=== PATIENT | female | born 2000 | race Caucasian/White ===

== ENCOUNTER 2024-07-21 07:14 | Inpatient (IN) | payer BC, SELFPAY ==
[2024-07-21] VITALS (9 sets, daily range): BP systolic 125–150; BP diastolic 72–99; BMI 21.3
[2024-07-21 04:56] LABS: % Basophils 0.4 % (0-2); % Eosinophils 0.1 % (0-6); % Immature Granulocytes 0.3 % (0-0.5); % Lymphocytes 15.8 % (20.5-51.1); % Monocytes 2.4 % (1.7-9.3); Absolute Lymphocytes 1.6 10^3/uL (1.2-3.4); Absolute Monocytes 0.3 10^3/uL (0.1-0.6); Absolute Neutrophils 8.3 10^3/uL (1.4-6.5); Hematocrit 36.3 % (37.0-47.0); Hemoglobin 12.7 g/dL (12.0-16.0); Mean Corpuscular Hgb 29.9 pg (27.0-31.0); Mean Corpuscular Volume 85.4 fL (81.0-99.0); Mean Platelet Volume 10.6 fL (7.4-10.4); Nucleated Red Blood Cells % 0 %; Platelet Count 296 10^3/uL (130-400); Red Blood Cell Count 4.25 10^6/uL (4.20-5.40); White Blood Cell Count 10.2 10^3/uL (4.8-10.8)
[2024-07-21 05:10] LABS: ALT (SGPT) 16 U/L (0-35); AST (SGOT) 21 U/L (14-36); Albumin 5.1 g/dl (3.5-5.0); Alcohol 248 mg/dl; Alkaline Phosphatase 50 U/L (38-126); Blood Urea Nitrogen 9 mg/dl (7-17); Calcium 9.6 mg/dl (8.4-10.2); Carbon Dioxide 22 mmol/L (22-30); Chloride 107 mmol/L (98-107); Glucose 128 mg/dl (70-99); Potassium 4.4 mmol/L (3.5-5.1); Sodium 145 mmol/L (135-145); Total Bilirubin 0.2 mg/dl (0.2-1.3); Total Protein 7.8 g/dl (6.3-8.2); eGFR > 60.00
--- NOTE | 2024-07-21 05:32 | ED.GENMED ---
History of Present Illness
General
Chief Complaint: Musculo-Skeletal Complaint
Source: patient and ambulance crew
Exam Limitations: none
Time Seen by Provider: 07/21/24 04:39
Nursing documentation reviewed up to this point in time: agreed with
History of Present Illness
History of Present Illness:
This a pleasant 23-year-old female presents to the emergency department with left ankle pain and swelling. She admits to drinking alcohol this evening. This morning she awakened and slipped on some water that was on the floor. She is complaining
of left ankle pain. She also reports right ankle pain which is not as severe. Denies head injury or loss of consciousness.
Review of Systems
Review of Systems
Allergies reviewed?: Yes
Other source history: other (driend)
All Other Systems: ROS reviewed and negative except as documented in HPI and ROS
Musculoskeletal: Reports joint pain, joint swelling and muscle pain
Psychiatric: Reports anxiety
Phy Exam
General Physical Exam
General Presentation: well appearing and mild distress
General age: appears stated age
General Skin: warm and dry
General Habitus: normal
General Mental: alert
General Hydration: appears well hydrated
Cardiovascular Exam
Cardiovascular Exam: regular rate/rhythm and no edema
Pulmonary Exam
Pulmonary Exam: lungs clear and no respiratory distress
Skin Exam
Skin Exam: normal color and warm/dry
Psychiatric Exam
Psychiatric Exam: normal mood/affect
Course
Orders/Labs/Results
Orders:
Orders
07/21/24 04:39
Ankle, Right 3 view CR [CR Ankle - Right Min 3 Views *] Urgent
Comment:
Reason For Exam: fall
Ankle, left 3 view CR [CR Ankle - Left Min 3 Views ] Urgent
Comment:
Reason For Exam: fall
Knee, Left 4 or More Views [CR Knee - Left 4 Or More View*] Urgent
Comment:
Reason For Exam: fall
07/21/24 04:48
Alcohol Urgent
Complete Blood Count/With Diff Urgent
Comprehensive Metabolic Panel Urgent
07/21/24 Breakfast
Regular
At Your Request: Full Participation
07/21/24 06:20
Admit/Transfer Patient As Directed
Co-Sign Provider:
Level of Care: Inpatient admission
Assign to:: Medical/Surgical
Physician / Group: Gary
Diagnosis: L Ankle Fracture
Reason for Hospitalization: L Ankle Fracture
Expected length of stay greater than two midnights?: Yes
ELOS- Estimated Length of Stay in days: 2
I certify the patient meets the requirements for IP care: Yes
Code Status As Directed
Resuscitation Status: Full Code
PRN Pain Medication Management As Directed
May give lesser potent ordered pain med per pt: Yes
preference::
Protocol:: Medication orders for pain may be administered in a
manner that supports deferring to patient preference
when the pt is:
- Requesting an ordered lesser potent pain medication.
Least to most potent pain medications are defined
as: acetaminophen < NSAID < tramadol < opioids
(morphine, oxycodone, hydromorphone).
- Requesting a lesser dose of the same medication IF
ORDERED.
- Requesting a less intrusive route of administration
if both routes are prescribed by the provider (PO <
IV).
07/21/24 07:14
HYDROmorphone [Dilaudid] 1 mg IV NOW STA
Ondansetron Injectable [Zofran] 4 mg IV NOW STA
07/21/24 09:15
Acetaminophen [Tylenol] 650 mg PO Q4HPRN PRN
Dextrose 5%/Lactringers 1000ML [D5lr] 1,000 ml IV 100 mls/hr
HYDROmorphone [Dilaudid] 0.5 mg IV Q4HPRN PRN
07/21/24 09:15
ORTHOPEDIC CONSULT Routine
Consulting Provider: Loretta Pérez I.
Was physician already notified: Yes
Reason for consult: L Ankle Fracture
VTE Contraindication Routine
VTE Mechanical Device Contraindication: Lower Limb Injury
Pharmocologic Contraindication: Medical Contraindication
Activity As Directed
Activity Level: Bedrest
I/O [Intake/ Output] As Directed
Frequency: Per unit guidelines
Vital Signs As Directed
Frequency: Per unit guidelines
Weight Bearing Status As Directed
Weight bearing to: Left lower extremity
Type: Non Wt. bearing
Oxygen Therapy [O2 Therapy] [RESP] Routine
Titrate/Wean O2 to maintain O2 sat greater than (%): 94
Abnormal Lab Results
07/21/24
04:48
Hct 36.3 L %
(37.0-47.0)
MPV 10.6 H fL
(7.4-10.4)
Absolute Neuts (auto) 8.3 H 10^3/uL
(1.4-6.5)
Neutrophils % 81.0 H %
(42.2-75.2)
Lymphocytes % 15.8 L %
(20.5-51.1)
Glucose 128 H mg/dl
(70-99)
Albumin 5.1 H g/dl
(3.5-5.0)
07/21/24 04:48
07/21/24 04:48
Vital Signs
Initial and Last Documented VS:
Initial Vital Signs
Temp Pulse Resp BP Pulse Ox
97.4 F 109 18 140/97 100
07/21/24 04:41 07/21/24 04:41 07/21/24 04:41 07/21/24 04:41 07/21/24 04:41
Last Documented Vital Signs
Temp Pulse Resp BP Pulse Ox
98.7 F 82 18 125/85 100
07/21/24 15:54 07/21/24 15:54 07/21/24 15:54 07/21/24 15:54 07/21/24 15:54
*Critical Care Note
Total Time (30-74mins, 75-104mins- exclusive of procedures): Not Applicable
Update Note
Update Note:
Spoke with Radha Pérez, orthopedics who recommends patient follow-up in her office. Recommends discharge home with a flat leg in posterior long-leg and long-leg splint.
Patient to be admitted to the hospitalist service since she has a spiral tib-fib fracture on the left and an avulsion/grade 3 sprain on the right.
ED Attending Note
-
Portions of this chart may have been created with voice recognition software.� Occasional wrong word or��sound alike� substitutions may have occurred due to the inherent limitations of voice recognition software.
Discharge Plan
Departure
Patient Disposition: Admit
Date of Disposition: 07/21/24
Time of Disposition: 06:23
Admit to: Med/Surg
Presentation/result/management discussed w/ accepting MD/DO: Hospitalist
Discharge Problem:
Closed fracture of left fibula and tibia, Alcohol use
Interventions
Interventions:
*Risk Screen - Suicide Last Done: 07/21/24 09:29
*General Assessment Last Done: 07/21/24 04:41
*Neglect/Abuse Screening Last Done: 07/21/24 04:41
ED- Fall Risk Assessment Last Done: 07/21/24 08:21
*ED COVID-19 Vaccine History Last Done: 07/21/24 09:29
*Nursing Disposition Last Done: 07/21/24 08:21
ED-Musculoskeletal Assessment Last Done: 07/21/24 04:50
Discharge Date and Time
Discharge Date/Time: 07/21/24 09:08
--- NOTE | 2024-07-21 06:23 | HPS.HSE ---
Family Physician
-
Family Physician: PHYSICIAN PRIVATE
Chief Complaint
-
Slip and Fall, Leg pain
History of Present Illness
Patient is a 23y F with no significant PMH who presents to ED complaining of bilateral ankle pain s/p slip and fall at home. Patient notes that she was drinking alcohol this evening. She slipped on a puddle in her kitchen and fell to the floor
- twisting both of her ankles severely during the fall. She was unable to get up unassisted and noted severe pain in both ankles. She denies striking her head, LOC. She denies any prodrome for lightheadedness, dizziness, etc prior to the fall.
She has no medical issues and takes no current medications.
She denies any recent illness.
Her only current complaint is pain in the ankles - L > R.
Patient was reportedly unable to bear weight on the RLE due to pain / sprain injury.
Medical History
Past Medical History
Past Medical History: Reports None
Past Surgical History: Reports Other
Additional Past Surgical History:
T&A
Social History
Tobacco: Non-smoker
Alcohol: Occasional
Drug: None
Family History
Family History: Not pertinent
Allergies / Home Medications
Allergies reflects when Allergies were last updated in [employer].
Home Medications with original date entered in [employer]
Allergy/Medication List:
Allergies
Allergy/AdvReac Type Severity Reaction Status Date / Time
shellfish derived Allergy Tongue Verified 03/29/23 09:43
Swelling
Home Medications
levonorgestrel-ethinyl estradiol 0.1 mg-20 mcg tablet (Sronyx) 1 tab PO DAILY 03/24/23
Review of Systems
-
History Source: Patient
A 12 point ROS was completed and negative except as noted: Yes
Constitutional: Denies Fever or Chills
Respiratory: Denies Cough or Trouble Breathing
Cardiac: Denies Chest Pain or Palpitations
Abdomen/GI: Denies Abdominal Pain, Nausea, Vomiting or Diarrhea
: Denies Dysuria or Frequency
Musculoskeletal: Reports Joint Pain
Neurological: Denies Dizzy or Headache
Psych: Denies Depression or Anxiety
Physical Exam
Vital Signs
Vital Signs
Temp Pulse Resp BP Pulse Ox
97.4 F 109 18 140/97 100
07/21/24 04:41 07/21/24 04:41 07/21/24 04:41 07/21/24 04:41 07/21/24 04:41
Physical Exam
General: Other (23y F in no acute distress.)
HEENT: Moist mucous membranes and PERRLA
Respiratory: Clear; No Wheezes, Rales or Rhonchi
Cardiac: S1/S2 and Regular Rhythm; No Murmur
Musculoskeletal: Other (Bilateral LE wrapped with ROCKY bandages from knee to toes. Splint in place on the LLE.)
Neuro: AO x 3 and Other (Intoxicated but awake and alert.)
Laboratory Results
-
07/21/24 04:48
07/21/24 04:48
Laboratory Results
Total Bilirubin 0.2 mg/dl (0.2-1.3) 07/21/24 04:48
AST 21 U/L (14-36) 07/21/24 04:48
ALT 16 U/L (0-35) 07/21/24 04:48
Alkaline Phosphatase 50 U/L (38-126) 07/21/24 04:48
Impression/Plan
-
A/P: Patient is a 23y F with no PMH who presents to ED complaining of bilateral ankle pain s/p [id number] at home.
Left Tib-Fib Fracture
Right Ankle Sprain
Fall at Home
- Admit for further evaluation and treatment.
- Patient was reportedly unable to bear weight on the R ankle as well due to sprain injury.
- Splint in place on the L. Compression / ROCKY wrap in place on the R.
- Ortho evaluation for further recommendations / likely operative repair of tib-fib fracture.
- NWB pending Ortho eval.
- Supportive care, pain control, etc.
Acute Alcohol Intoxication
- No history of alcohol use disorder / does not drink daily.
- Supportive care / time. No additional treatment needed.
DVT Prophylaxis: Cannot tolerate mechanical prophylaxis due to bilateral lower leg injuries. No pharmacologic prophylaxis for now given likely surgery.
Code Status: Full
[2024-07-21] MEDS: ZOFRAN 4 MG IV (07:17)
[2024-07-21] MEDS: DILAUDID 1 MG IV (07:17)
--- NOTE | 2024-07-21 08:19 | W.PN.UPDATE ---
Update Note
Progress Note Update
Full orthopedic consult dictated:
Dx: Left distal tibia/fibula fracture and right ankle sprain with small avulsion fracture distal fibula
Plan: Patient currently in a posterior long-leg splint for the left and right posterior short leg splint. She is going to require open reduction internal fixation with intramedullary oleg of the tibia, possible plating of the distal fibula. She
was drinking last night so allow for her some time to clear the alcohol. Currently she is posted July 22, [address] Pérez. In the interim they are going to focus on aggressive ice with elevation left leg to control swelling/pain.
Nonweightbearing left leg and weightbearing as tolerated right leg. I am going to have the emergency room staff switch her from short leg posterior molded splint to an Aircast which hopefully will make her life a bit easier. N.p.o. after midnight
and Ancef on-call to operating room. Surgical consent signed and surgical education marked.
--- NOTE | 2024-07-21 08:21 | EDRN ---
this RN called the receiving unit and notified them that paper report was going to be tubed up
--- NOTE | 2024-07-21 09:49 | W.PN.HOSP.TC ---
Today's Communication/Plan
-
pain control
apprec ortho
for OR in AM
NPO post MN
Assessment / Plan
Assessment / Plan
pt is a 23 year old female
mechanical fall likely exacerbated by acute alcohol intoxication sustaining Left Tib-Fib Fracture and Right Ankle Sprain--apprec ortho -- for OR 07/22--NWB left leg--WBAT right leg--pain control
Acute Alcohol Intoxication--level 248 on admission this AM - No history of alcohol use disorder / does not drink daily.
DVT Prophylaxis: Cannot tolerate mechanical prophylaxis due to bilateral lower leg injuries. No pharmacologic prophylaxis for now given likely surgery.
code status -- FULL CODE
Anticipated Discharge: 24 - 48 hours
Subjective/Interval History
-
Date of Service: July 21, 2024
pt doing OK
Objective Data
-
Labs:
Laboratory Results
07/21/24
04:48
WBC 10.2
Hgb 12.7
Hct 36.3 L
Plt Count 296
Sodium 145
Potassium 4.4
Chloride 107
Carbon Dioxide 22
BUN 9
Creatinine 0.7
Glucose 128 H
Calcium 9.6
Total Bilirubin 0.2
AST 21
ALT 16
Alkaline Phosphatase 50
Vital Signs:
max temp for 24 hours
07/21/24
09:22
Temp 98.0 F
Vital Signs
Temp Pulse Resp BP Pulse Ox
98.0 F 103 18 130/77 98
07/21/24 09:22 07/21/24 09:22 07/21/24 09:22 07/21/24 09:22 07/21/24 09:22
Review of Systems
-
All other systems: Reviewed and negative
Physical Exam
-
General: Well Developed, Well Nourished and No Apparent Distress
HEENT: Normocephalic and Atraumatic
Respiratory: Clear to Auscultation; Negative Wheezes or Rhonchi
Cardiac: Regular Rhythm and S1/S2; Negative Murmur
GI: Soft, Nontender, Nondistended and Normal Bowel Sounds
Musculoskeletal: No Clubbing, No Cyanosis, No Edema and Other (left leg in long cast--right ankle in soft air cast)
Neuro: Awake and Alert
[2024-07-21] MEDS: D5LR 1000 IV (09:57)
[2024-07-21] MEDS: DILAUDID 0.5 MG IV ×3 (10:07→22:19)
[2024-07-21] MEDS: TYLENOL 650 MG PO ×3 (13:35→20:44)
--- NOTE | 2024-07-21 14:20 | CM ---
Pt presented from home w/family s/p fall. Imaging in ER +L distal tib/fib fx and +R ankle sprain w/avulsive fx off the fibula. Ortho consulted. Surgery pending Sunday 07/22 for L tib oleg and possible plating. R foot appropriate for Air Cast/WBAT.
CM spoke w/pt. Explained role and discussed dc plan/options. Pt resides w/mom in a 2 story home, full BB on 2nd fl w/MT on , 2ste, OUTDOOR STUDIES DIRECTOR Iamb/adls, no AD. Pt aware of pending surgery. Likely for OP PT/OT when appropriate. Possible DME at dc-pending
PT/OT evals s/p Surgery clearance.
CM/SW will continue to follow to ensure a safe and timely discharge.
--- NOTE | 2024-07-21 17:26 | W.PN.UPDATE ---
Update Note
Progress Note Update
pt seen and examined with family at bedside
agree with ortho PA note
xrays reviewed B/L ankles
Imp: mid to distal 1/3rd left tibia/fibula fx's, avulsion fx (grade 3 sprain) calcaneofibular ligament right ankle
Plan: Nonop and operative approaches of left tib-fib fx's were discussed. I recommend tibial nail(oleg). Sx delayed due to elevated blood alcohol level. NPO p MN. If blood work stabilizes and pt is cleared medically we will proceed with sx
tomorrow Mid morning. All questions answered. NWB LLE. WBAT RLE
[2024-07-22] VITALS (12 sets, daily range): BP systolic 137–149; BP diastolic 83–99
[2024-07-22] MEDS: TYLENOL 650 MG PO ×5 (00:20→21:32)
[2024-07-22] MEDS: D5LR 1000 IV (01:52)
[2024-07-22] MEDS: DILAUDID 0.5 MG IV ×4 (04:51→20:39)
--- NOTE | 2024-07-22 07:01 | W.PN.UPDATE ---
Update Note
Progress Note Update
Patient resting comfortably in bed this morning. Plan is for OR later this morning for left tibia IMN under the direction of Dr. Pérez. Remain NPO. Ancef fire protection engineering technician to OR. Continue with ice and elevation. Pain control as needed. NWB to left leg.
WBAT to right leg. All questions answered.
[2024-07-22 09:55] LABS: Hematocrit 28.5 % (37.0-47.0); Mean Corp Hgb Conc. 35.1 g/dL (33.0-37.0); Mean Corpuscular Hgb 30.2 pg (27.0-31.0); Mean Corpuscular Volume 86.1 fL (81.0-99.0); Mean Platelet Volume 10.4 fL (7.4-10.4); Platelet Count 205 10^3/uL (130-400); Red Blood Cell Count 3.31 10^6/uL (4.20-5.40); Red Cell Dist. Width 13.1 % (11.5-14.5); White Blood Cell Count 9.1 10^3/uL (4.8-10.8)
[2024-07-22 10:45] LABS: Blood Urea Nitrogen 6 mg/dl (7-17); Calcium 9.1 mg/dl (8.4-10.2); Carbon Dioxide 27 mmol/L (22-30); Chloride 103 mmol/L (98-107); Estimated Creatinine Clearance > 125 ml/min; Glucose 94 mg/dl (70-99); Potassium 3.5 mmol/L (3.5-5.1); Sodium 139 mmol/L (135-145); eGFR > 60.00
--- NOTE | 2024-07-22 11:09 | W.PN.HOSP.TC ---
Addendum entered and electronically signed by Fanny Alonzo MD 07/22/24 18:53:
I saw and evaluated the patient independently. I reviewed the resident�s note and agree with findings and plan as documented by Dr. Robison.
GENERAL: well developed, well nourished, female in no apparent distress
HEENT: NC/AT
HEART: regular rate and rhythm, +S1, +S2
LUNGS : clear to auscultation bilaterally
ABDOM: soft, nontender, nondistended, + bowel sounds
EXT: no cyanosis, clubbing, or edema--left leg in soft splinted cast--right foot in air cast
NEUROLOGIC: grossly intact
mechanical fall likely exacerbated by acute alcohol intoxication sustaining Left Tib-Fib Fracture and Right Ankle Sprain--apprec ortho -- for OR 07/22--NWB left leg--WBAT right leg--pain control
Acute Alcohol Intoxication--level 248 on admission this AM - No history of alcohol use disorder / does not drink daily.
DVT Prophylaxis: Cannot tolerate mechanical prophylaxis due to bilateral lower leg injuries. No pharmacologic prophylaxis for now given likely surgery.
code status -- FULL CODE
dispo based on therapy recs following ortho surgery
Original Note:
Today's Communication/Plan
-
NPO, OR today with ortho
Assessment / Plan
Assessment / Plan
23yo F with no significant PMH who presented to ED 07/21/24 for bilateral ankle pain s/p mechanical fall at home night prior while drinking alcohol.
S/p mechanical fall likely exacerbated by acute alcohol intoxication
Left tibia/fibula fracture
Right ankle grade 3 sprain
- Pain well controlled, required dilaudid x2 overnight. Continue standing tylenol.
- Ortho consulted, appreciate recs. Plan for OR today
- NWB LLE, WBAT RLE. PT per ortho recs postop.
Acute alcohol intoxication on admission
- Alc level 248 on admission
- Denies daily alcohol use; no history of alcohol use disorder
Code status: full
Diet: NPO prior to surgery
VTE ppx: hold mechanical ppx given BLE injuries, hold pharmacologic ppx given surgery today
Dispo planning: TBD pending ortho/PT recs
Anticipated Discharge: 24 - 48 hours
Subjective/Interval History
-
Date of Service: July 22, 2024
No acute events overnight. Reports her left leg pain is improved with medications, now at a tolerable level. Denies lightheadedness, dizziness, chest pain, shortness of breath, nausea, vomiting, diarrhea, constipation. Currently NPO, otherwise
tolerates PO diet. Not ambulatory given injuries.
Objective Data
-
Labs:
Laboratory Results
07/22/24
09:25
WBC 9.1
Hgb 10.0 L D
Hct 28.5 L
Plt Count 205 D
Sodium 139
Potassium 3.5
Chloride 103
Carbon Dioxide 27
BUN 6 L
Creatinine 0.7
Glucose 94
Calcium 9.1
Vital Signs:
Vital Signs
Temp Pulse Resp BP Pulse Ox
98.0 F 74 16 141/90 100
07/22/24 07:15 07/22/24 07:15 07/22/24 07:15 07/22/24 07:15 07/22/24 07:15
I&O
07/21/24 07/22/24 07/23/24
06:59 06:59 06:59
Intake Total 3980 / 3980
Output Total 1150 / 1150
Balance 2830 / 2830
Review of Systems
-
History Source: Patient
All other systems: Reviewed and negative
Physical Exam
-
General: Well Developed, Well Nourished, No Apparent Distress, Comfortable and Conversant
HEENT: Normocephalic and Atraumatic
Respiratory: Clear to Auscultation and Non Labored Respirations
Cardiac: Regular Rhythm and S1/S2
GI: Soft, Nontender, Nondistended and Normal Bowel Sounds
Musculoskeletal: No Edema and Other (LLE wrapped, RLE splint in place, toes well perfused and motion intact)
Skin: Warm and Dry
Neuro: Awake, Alert, Oriented and AO x 3
Psych: Calm and Intact Judgement/Insight
Data Reviewed
-
Diagnostic Radiology: Image personally visualized and interpreted and Report Reviewed by me
Labs: Labs Reviewed by me
[2024-07-22] MEDS: TYLENOL PO (12:02)
--- NOTE | 2024-07-22 14:09 | CM ---
Addendum entered by Latoya Anne 07/23/24 17:15:
spoke with family requsted [employer] for DME, Call placed will fax DME orders. family plan to take patient home with family car when DME delivered. Referral to [facility] for home health. CM will continue to follow for discharge planning needs.
Original Note:
Patient seen at bedside with parents and physicians. Patient for Surgery today and plan is pending outcome. Patient plan is for home with VN, Patient mother indicated that daughter has already voted. CM will continue to follow for discharge
planning needs.
Plan; home with VN watch for PT/OT recommendations
[2024-07-22] MEDS: DILAUDID 0.25 MG IV (14:56)
[2024-07-22] MEDS: D5LR IV ×2 (15:40→17:20)
--- NOTE | 2024-07-22 16:11 | PTCARENOTE ---
Pt returned to 2S in bed. LLE with decreased movement, neurovascular assessment otherwise intact. LLE maintained in splint secured with heath wrap. IVF infusing per order. Nasal cannula maintained. texted for diet order. Bed locked and in the
lowest position, safety maintained. Oriented to room and call perrin, parents at bedside.
[2024-07-22] MEDS: ASPIRIN 325 MG PO (17:20)
[2024-07-22] MEDS: ANCEF 5 IV (19:55)
--- NOTE | 2024-07-22 19:55 | W.PN.UPDATE ---
Update Note
Progress Note Update
pt seen and examined with parents at bedside
Pt in NAD, no complaints
LLE: splint clean,dry, intact. NVI. Good active ROM toes without pain.
Plan: PT/OT WBAT RLE, TTWB LLE with crutches., wheelchair with elevating left leg rest.
Motrin and Tylenol for pain/discomfort, ice, elevate
F/U in office in [address] Pérez
[2024-07-22] MEDS: MOTRIN 600 MG PO (23:12)
[2024-07-23] VITALS (7 sets, daily range): BP systolic 106–161; BP diastolic 71–78; PULSE 93
[2024-07-23] MEDS: TYLENOL PO (00:10)
[2024-07-23] MEDS: DILAUDID 0.5 MG IV (00:35)
[2024-07-23] MEDS: ANCEF 5 IV (03:28)
[2024-07-23] MEDS: TYLENOL 650 MG PO ×6 (03:38→23:40)
[2024-07-23] MEDS: MOTRIN 600 MG PO (05:12)
[2024-07-23] MEDS: ASPIRIN 325 MG PO (07:53)
--- NOTE | 2024-07-23 08:02 | W.PN.ORTHO ---
Today's Communication / Plan
-
23-year-old female POD #1 ORIF left tibia fracture with tibial nail, closed treatment distal 3rd fibula fracture, short leg splint with Dr. Pérez.
- TTWB LLE with crutches. WBAT RLE.
- PT/OT for gait training.
- Recommend wheelchair with elevating left leg rest. If unable to provide, please contact office to obtain prescription.
- ASA 325mg once daily x 4 weeks for DVT prophylaxis.
- Motrin and Tylenol for pain/discomfort, ice, elevate.
- F/U in [address] Pérez. Discharge tab updated.
- Orthopedically, patient stable for discharge.
Assessment
.
Distal Motor Intact: Yes
Dressing:
Splint clean,dry, intact. NVI. Good active ROM toes without pain.
Assessment:
POD #1 ORIF left tibia fracture with tibial nail, closed treatment distal 3rd fibula fracture, short leg splint with Dr. Pérez.
Plan
.
Surgery / Date: 07/22/[address] Pérez
DVT Prophylaxis: Aspirin
Activity:
Out of bed.
PT/OT
Discharge Plan: Home
Discharge Information:
Appreciate CM
Subjective
.
.:
Patient resting comfortably. Reports that her pain is well controlled at this time. Denies any paresthesias.
Vital Signs and Labs
.
Vital Signs and Labs:
Temp Pulse Resp BP Pulse Ox
98.7 F 81 12 134/74 97
07/23/24 03:00 07/23/24 03:00 07/23/24 03:00 07/23/24 03:00 07/23/24 03:00
[2024-07-23 08:08] LABS: Hematocrit 28.9 % (37.0-47.0); Mean Corp Hgb Conc. 34.6 g/dL (33.0-37.0); Mean Corpuscular Hgb 30.2 pg (27.0-31.0); Mean Corpuscular Volume 87.3 fL (81.0-99.0); Mean Platelet Volume 11.4 fL (7.4-10.4); Platelet Count 234 10^3/uL (130-400); Red Blood Cell Count 3.31 10^6/uL (4.20-5.40); Red Cell Dist. Width 13.1 % (11.5-14.5); White Blood Cell Count 11.4 10^3/uL (4.8-10.8)
[2024-07-23 08:39] LABS: Blood Urea Nitrogen 8 mg/dl (7-17); Carbon Dioxide 23 mmol/L (22-30); Chloride 102 mmol/L (98-107); Estimated Creatinine Clearance > 125 ml/min; Glucose 90 mg/dl (70-99); Magnesium 1.9 mg/dl (1.6-2.3); Potassium 3.8 mmol/L (3.5-5.1); Sodium 140 mmol/L (135-145); eGFR > 60.00
--- NOTE | 2024-07-23 08:47 | W.PN.HOSP.TC ---
Addendum entered and electronically signed by Celeste Robison MD, Resident 07/23/24 16:47:
Patient requires a lightweight wheelchair due to ambulatory dysfunction. Patient is unable to self-propel in a standard wheelchair. She requires a wheelchair with removal desk length arm rests, removable elevating leg rests with calf pads,
standard-width wheelchair. A walker has been considered, but is clinically ineffective for longer distances and getting in/out of house due to patient's condition and she requires leg elevation. For short distances in home, she requires walker to
prevent falls due to left leg being only toe touch weight-bearing for stability and patient struggling with weight of cast. Patient needs a commode due to confinement to one level of the home environment and there is no toilet on the same level. She
will have continued PT at home for mobility and steps.
Addendum entered and electronically signed by Fanny Alonzo MD 07/23/24 14:58:
I saw and evaluated the patient independently. I reviewed the resident�s note and agree with findings and plan as documented by Dr. Robison.
GENERAL: well developed, well nourished, female in no apparent distress
HEENT: NC/AT
HEART: regular rate and rhythm, +S1, +S2
LUNGS : clear to auscultation bilaterally
ABDOM: soft, nontender, nondistended, + bowel sounds
EXT: no cyanosis, clubbing, or edema--left leg in soft splinted cast--right foot in air cast
NEUROLOGIC: grossly intact
mechanical fall likely exacerbated by acute alcohol intoxication sustaining Left Tib-Fib Fracture and Right Ankle Sprain--apprec ortho -- s/p OR 07/22--NWB left leg--WBAT right leg--pain control
Acute Alcohol Intoxication--level 248 on admission this AM - No history of alcohol use disorder / does not drink daily.
DVT Prophylaxis: Cannot tolerate mechanical prophylaxis due to bilateral lower leg injuries. No pharmacologic prophylaxis for now given likely surgery.
code status -- FULL CODE
dispo based on therapy recs following ortho surgery--OK for d/c
Original Note:
Today's Communication/Plan
-
PT/OT
Assessment / Plan
Assessment / Plan
23yo F with no significant PMH who presented to ED 07/21/24 for bilateral ankle pain s/p mechanical fall at home night prior while drinking alcohol.
S/p mechanical fall likely exacerbated by acute alcohol intoxication
Left tibia/fibula fracture
Right ankle grade 3 sprain
- Pain well controlled, required dilaudid x2 overnight. Continue standing tylenol.
- S/p surgery with Dr. Pérez 07/22/24: ORIF left tibia fracture with tibial nail, closed treatment distal 3rd fibula fracture, short leg splint.
- Per ortho TTWB LLE with crutches, wheelchair with LLE elevation; WBAT RLE
- PT/OT pending
- Follow up with ortho outpatient (10 days)
Acute alcohol intoxication on admission
- Alc level 248 on admission
- Denies daily alcohol use; no history of alcohol use disorder
Code status: full
Diet: NPO prior to surgery
VTE ppx: ASA 325 qD x4 weeks per ortho
Dispo planning: TBD pending PT recs
Anticipated Discharge: Within 24 hours
Subjective/Interval History
-
Date of Service: July 23, 2024
No acute events overnight. Pain is well controlled, tolerable. Denies lightheadedness, dizziness, chest pain, shortness of breath, nausea, vomiting, diarrhea, constipation. Tolerating PO diet. Has not ambulated or been OOB yet.
Objective Data
-
Labs:
Laboratory Results
07/23/24
04:36
WBC 11.4 H
Hgb 10.0 L
Hct 28.9 L
Plt Count 234
Sodium 140
Potassium 3.8
Chloride 102
Carbon Dioxide 23
BUN 8
Creatinine 0.7
Glucose 90
Calcium 9.0
Vital Signs:
Vital Signs
Temp Pulse Resp BP Pulse Ox
98.7 F 74 16 135/78 99
07/23/24 07:17 07/23/24 07:17 07/23/24 07:17 07/23/24 07:17 07/23/24 07:17
I&O
07/22/24 07/23/24 07/24/24
06:59 06:59 06:59
Intake Total 3980 / 3980 870 / 870
Output Total 1150 / 1150
Balance 2830 / 2830 870 / 870
Review of Systems
-
History Source: Patient
All other systems: Reviewed and negative
Physical Exam
-
General: Well Developed, Well Nourished, No Apparent Distress, Comfortable and Conversant
HEENT: Normocephalic and Atraumatic
Respiratory: Clear to Auscultation and Non Labored Respirations
Cardiac: Regular Rhythm and S1/S2
GI: Soft, Nontender, Nondistended and Normal Bowel Sounds
Musculoskeletal: Edema, Right Lower Extrem (trace edema RLE) and Other (LLE splinted/wrapped clean dry intact, RLE splint in place, toes well perfused and motion intact)
Skin: Warm and Dry
Neuro: Awake, Alert and Oriented
Psych: Calm and Intact Judgement/Insight
Data Reviewed
-
Diagnostic Radiology: Image personally visualized and interpreted and Report Reviewed by me
Labs: Labs Reviewed by me
--- NOTE | 2024-07-23 11:32 | W.PN.UPDATE ---
Update Note
Progress Note Update
I was called to floor checking to make sure patient was not developing a right foot drop. Patient is resting comfortably and has no issues with the right foot. Her right ankle has some mild to moderate ecchymosis and she is in her Aircast. She is
able to actively dorsiflex the right foot against resistance. I have no clinical concerns for foot drop. Patient may be discharged today. Weight-bear as tolerated on the right lower extremity. Toe-touch weightbearing for stability on the left
lower extremity. She is to see physical therapy for gait training/transfers from bed to chair, bed to wheelchair with crutches. All questions were answered.
[2024-07-23] MEDS: DULCOLAX 5 MG PO (17:46)
[2024-07-24] MEDS: TYLENOL PO (05:00)
[2024-07-24 07:13] LABS: Hematocrit 27.3 % (37.0-47.0); Hemoglobin 9.3 g/dL (12.0-16.0); Mean Corp Hgb Conc. 34.1 g/dL (33.0-37.0); Mean Corpuscular Hgb 30.7 pg (27.0-31.0); Mean Corpuscular Volume 90.1 fL (81.0-99.0); Mean Platelet Volume 11.2 fL (7.4-10.4); Platelet Count 220 10^3/uL (130-400); Red Blood Cell Count 3.03 10^6/uL (4.20-5.40); Red Cell Dist. Width 13.2 % (11.5-14.5); White Blood Cell Count 8.8 10^3/uL (4.8-10.8)
[2024-07-24] MEDS: TYLENOL 650 MG PO ×2 (07:18→12:13)
[2024-07-24 07:29] LABS: Blood Urea Nitrogen 12 mg/dl (7-17); Carbon Dioxide 23 mmol/L (22-30); Chloride 106 mmol/L (98-107); Estimated Creatinine Clearance > 125 ml/min; Glucose 85 mg/dl (70-99); Magnesium 1.8 mg/dl (1.6-2.3); Potassium 3.8 mmol/L (3.5-5.1); Sodium 140 mmol/L (135-145); eGFR > 60.00
[2024-07-24 08:00] VITALS: BP 116/78
[2024-07-24] MEDS: ASPIRIN 325 MG PO (08:10)
[2024-07-24] MEDS: MIRALAX 17 GRAMS PO (08:10)
--- NOTE | 2024-07-24 08:28 | VNURNOTE ---
Home Health Liaison spoke with patient's mom Freda to discuss [facility] nurse/therapy, visits, schedule and homebound status. She is agreeable and understands that visits at home will be 2-3 x per week to assess and teach medical management. [facility]
liaison contact information provided. Patient is aware that [facility] will contact them for start of care in 1-2 days after discharge from . DME equip info faxed to [facility] by LISA Garcia. DME co to call patient's mom with copay/coverage and EDT for
equip delivery.
[facility] referral completed in [facility].
--- NOTE | 2024-07-24 08:58 | W.PN.UPDATE ---
Update Note
Progress Note Update
Patricia is POD2 following her left tibia intramedullary nail performed by Dr. Pérez. She is resting comfortably in bed this morning, and reports her pain is well controlled with Tylenol. Discharge was put off yesterday due to patient needing DME.
LLE: Splint in place clean, dry and intact. Good color of toes. Patient able to wiggle toes. Sensation intact to light touch above and below splint. Capillary refill <2 seconds.
RLE: Aircast in place. Expected edema about the ankle and foot. Tenderness to palpation over the distal fibula and ATFL. Patient able to wiggle toes, plantar and dorsiflex ankle. Neurovascularly intact distally.
23-year-old female POD #2 ORIF left tibia fracture with tibial nail, closed treatment distal 3rd fibula fracture, short leg splint with Dr. Pérez.
- TTWB LLE with crutches. WBAT RLE.
- PT/OT for gait training.
- Recommend wheelchair with elevating left leg rest. If unable to provide, please contact office to obtain prescription.
- ASA 325mg once daily x 4 weeks for DVT prophylaxis.
- Motrin and Tylenol for pain/discomfort, ice, elevate.
- F/U in [address] Pérez. Discharge tab updated.
- Orthopedically, patient stable for discharge. Orthopedics will sign off for now. Please reach out with any additional questions or concerns.
--- NOTE | 2024-07-24 09:14 | CM ---
Addendum entered by Latoya Anne 07/24/24 13:02:
Patient mother spoke with [facility] and plan for delivery approx 3pm. Patient mother to transport patient home. [facility] to follow. CM will continue to follow for discharge planning needs.
Plan; home with [facility] and DME
Original Note:
[facility] unable to deliver, DME request sent to [facility] and they are to deliver today. CM will update patient family and patient. [facility] to follow for discharge planning needs.
Plan; home with [facility] and DME to be delivered today
--- NOTE | 2024-07-24 09:49 | W.PN.HOSP.TC ---
Addendum entered and electronically signed by Fanny Alonzo MD 07/24/24 13:21:
I saw and evaluated the patient independently. I reviewed the resident�s note and agree with findings and plan as documented by Dr. Robison.
GENERAL: well developed, well nourished, female in no apparent distress
HEENT: NC/AT
HEART: regular rate and rhythm, +S1, +S2
LUNGS : clear to auscultation bilaterally
ABDOM: soft, nontender, nondistended, + bowel sounds
EXT: no cyanosis, clubbing, or edema--left leg in soft splinted cast--right foot in air cast
NEUROLOGIC: grossly intact
mechanical fall likely exacerbated by acute alcohol intoxication sustaining Left Tib-Fib Fracture and Right Ankle Sprain--apprec ortho -- s/p OR 07/22--NWB left leg--WBAT right leg--pain control--DME equipment to be delivered today
Acute Alcohol Intoxication--level 248 on admission this AM - No history of alcohol use disorder / does not drink daily.
acute blood loss anemia from surgery and long bone fracture--no need for transfusion
DVT Prophylaxis: Cannot tolerate mechanical prophylaxis due to bilateral lower leg injuries. No pharmacologic prophylaxis for now given likely surgery.
code status -- FULL CODE
OK for d/c
Original Note:
Today's Communication/Plan
-
discharge home today AFTER medical equipment is delivered to patient's home
Assessment / Plan
Assessment / Plan
23yo F with no significant PMH who presented to ED 07/21/24 for bilateral ankle pain s/p mechanical fall at home night prior while drinking alcohol.
S/p mechanical fall likely exacerbated by acute alcohol intoxication
Left tibia/fibula fracture
Right ankle grade 3 sprain
- Pain well controlled, required dilaudid x2 overnight. Continue standing tylenol.
- S/p surgery with Dr. Pérez 07/22/24: ORIF left tibia fracture with tibial nail, closed treatment distal 3rd fibula fracture, short leg splint.
- Per ortho TTWB LLE with walker, wheelchair with LLE elevation; WBAT RLE
- Durable medical equipment to be delivered to home today- see prior note for equipment requirements. CM following
- PT/OT following, will continue home PT
- Stable for discharge home today, Ortho in agreement. Follow up with ortho outpatient (10 days)
Acute alcohol intoxication on admission
- Alc level 248 on admission
- Denies daily alcohol use; no history of alcohol use disorder
Acute blood loss anemia
- Hgb 12.7 on admission --> 9.3 today
- Expected drop in hgb after surgery
- Hgb stable in postop period, no signs of active or ongoing bleeding
- Repeat CBC outpatient with PCP
Counseled on requiring backup form of contraception given lapse in OCPs
Recommended establishing primary care, referral to residency clinic provided
Code status: full
Diet: Regular
VTE ppx: ASA 325 qD x4 weeks per ortho
Dispo planning: Home with VN, PT
Anticipated Discharge: Today
Subjective/Interval History
-
Date of Service: July 24, 2024
No acute events overnight. Pain is 'okay' and tolerable, though it gets slightly worse with activity as to be expected postoperatively. Denies headache, lightheadedness, dizziness, chest pain, shortness of breath, nausea, vomiting, diarrhea. Reports
constipation. Tolerating regular diet. OOB with PT as tolerated.
Objective Data
-
Labs:
Laboratory Results
07/24/24
04:27
WBC 8.8
Hgb 9.3 L
Hct 27.3 L
Plt Count 220
Sodium 140
Potassium 3.8
Chloride 106
Carbon Dioxide 23
BUN 12
Creatinine 0.7
Glucose 85
Calcium 9.0
Vital Signs:
Vital Signs
Temp Pulse Resp BP Pulse Ox
98.6 F 88 16 116/78 99
11/06/24 08:00 07/24/24 08:00 07/24/24 08:00 07/24/24 08:00 07/24/24 08:00
I&O
07/23/24 07/24/24 07/25/24
06:59 06:59 06:59
Intake Total 870 / 870 1380 / 1380
Balance 870 / 870 1380 / 1380
Review of Systems
-
History Source: Patient
All other systems: Reviewed and negative
Physical Exam
-
General: Well Developed, Well Nourished, No Apparent Distress, Comfortable and Conversant
HEENT: Normocephalic and Atraumatic
Respiratory: Clear to Auscultation and Non Labored Respirations
Cardiac: Regular Rhythm and S1/S2
GI: Soft, Nontender, Nondistended and Normal Bowel Sounds
Musculoskeletal: Edema, Right Lower Extrem (trace edema RLE) and Other (LLE splinted/wrapped clean dry intact, RLE splint in place; toes well perfused and motion intact bilaterally)
Skin: Warm and Dry
Neuro: Awake, Alert and Oriented
Psych: Calm and Intact Judgement/Insight
--- NOTE | 2024-07-24 10:24 | PN.CDI ---
CDI
- -
CDI:
Physician Documentation Request
Admit Date: 07/21/24 07:14
Dear Doctor Enriqueta,
Patient went to OR 07/22 for ORIF left tibia fracture with tibial nail, closed treatment distal 3rd fibula fracture.
H/H results as follows:
Laboratory Tests
07/21/24 07/23/24 07/24/24
04:48 04:36 04:27
Hgb 12.7 10.0 L 9.3 L
Hct 36.3 L 28.9 L 27.3 L
Could you please provide a diagnosis that supports the above lab abnormalities and additional evaluation/ monitoring:
Acute blood loss anemia
Anemia - other - please specify
Abnormal lab value clinically insignificant
Other
Use of terms such as suspected, likely, concern for, or probable (associated with a specific diagnosis that is being evaluated, monitored, or treated as if it exists) are acceptable and can be coded in the inpatient setting, when documented at the
time of discharge.
Thank you,
Kaela Lucio RN, BSN
CDI Specialist
tiger text
Please use your independent medical judgment in providing your response.
[2024-07-24 11:30] VITALS: BP 127/75; PULSE 88; O2SAT 98
[2024-07-24 13:00] VITALS: BP 127/75; PULSE 88; O2SAT 95
--- NOTE | 2024-07-24 13:46 | W.DCSUMMARY ---
Addendum entered and electronically signed by Fanny Alonzo MD 07/24/24 17:15:
Read, reviewed, and agree. See same day progress note for additional details. Time spent coordinating care, DC planning, review of DC plan of care with resident, transition of care, review of records in EMR, med rec, consults, notes, d/w
consultants, nursing, family, and CM was < 30 minutes
Original Note:
Discharge Summary
Discharge Data
Date of Admission: 07/21/24
Date of Discharge: 07/24/24
-
Pending Results: No
Hospital Course
Discharging Physician : Dr. Robison, Dr. Alonzo
Disposition : Home with VN, PT/OT
Primary care physician : Unknown
Principal Discharge diagnosis : Left tibia/fibula fracture, status post mechanical fall exacerbated by acute alcohol intoxication, anemia
Chronic Discharge diagnosis : N/A
Hospital Course : 23yo F with no significant past medical history who presented to ED 07/21/24 for bilateral ankle pain after a mechanical fall at home the night prior while drinking alcohol. Imaging revealed left tibia/fibula fracture and right
ankle sprain. Orthopedic surgery was consulted, and she underwent surgery 07/22/[address] Pérez- ORIF of left tibia fracture with tibia nail, closed treatment distal 3rd fibula fracture, short leg splint. PT/OT was following, and durable medical
equipment was delivered to patient's home prior to discharge. On day of discharge she was stable. She was discharged home with VN, PT/OT, and will follow up with orthopedic surgery outpatient.
Important imaging findings :
L ankle xray 07/21/24
FINDINGS/impression:
There are oblique fractures of the distal tibia and fibula diaphysis. No significant angulation. Subtle lateral and posterior displacement of the distal tibial component of approximately 4 mm. Approximately 2 mm posterior displacement of the distal
fibular fracture component.
Associated soft tissue swelling.
R pato xray 07/21/24
FINDINGS/impression:
Prominent lateral and anterior soft tissue swelling. 5 mm avulsion fracture fragment at the lateral calcaneal margin.
Medial malleolus intact. Ankle mortise preserved.
L knee xray 07/21/24
IMPRESSION:
No significant abnormality.
Tibia/fibula xray 07/22/24
FINDINGS:
Placement of an intramedullary oleg with two proximal and two distal interlocking screws transfixing a spiral fracture of the distal tibia with improved alignment.
IMPRESSION:
Fluoroscopic guidance for an orthopedic procedure. Please see the procedural report for further details.
Procedure findings :
PREOP DIAGNOSIS: Mildly displaced left mid to distal 3rd tibia and
fibula fractures.
POSTOP DIAGNOSIS: Mildly displaced left mid to distal 3rd tibia
and fibula fractures.
PROCEDURE: ORIF left tibia fracture with tibial nail, closed
treatment distal 3rd fibula fracture, short leg splint.
Discharge Plan
-
Patient Disposition: Home with Home Care
Discharge Diagnosis/Procedures: Mechanical fall, left tibia/fibula fracture, right ankle sprain
Condition: Good
Diet: No restrictions
Activity: Other activity
Additional Activity: R leg weight bearing as tolerated. L leg toe-touch weight bearing for stability. Use crutches/walker and wheelchair as directed.
Driving Restrictions: No driving
Bathing Restrictions: After seen by
Other Services: VN, PT and OT
Instructions: Lower leg fracture
Referrals:
Loretta Pérez DO [Active] - in one to two weeks (F/U 10 days post-op with Dr. Pérez )
PRIVATE,PHYSICIAN [Family Provider] - in less than 1 week (Follow up with your Primary Care Provider within 1 week of hospital discharge.)
Phill Tidwell DO, Resident [[facility] Practice Resident Year1] - in less than 1 week (You should schedule an appointment with your Primary Care Provider within 1 week of hospital discharge. Call to schedule a new patient appointment with the [facility]. You can ask for a TeleHealth appointment.)
Additional Discharge Medication Instructions: New medications:
- Aspirin 325 mg- take once per day for 4 weeks.
Prescriptions:
New
aspirin 325 mg Tablet
325 mg PO DAILY 28 Days Qty: 28 0RF
Continued
levonorgestrel-ethinyl estrad [Sronyx] 0.1-20 mg-mcg Tablet
1 tab PO DAILY
Discharge Orders:
Discharge Patient (As Directed); Ordered 07/24/24
Ordered By: Celeste Robison
Discharge Date and Time
Print Language: INDONESIAN
[2024-07-24] MEDS: MOTRIN 600 MG PO (14:32)
[2024-07-24 15:00] VITALS: BP 116/67
== END 2024-07-24 15:05 | disposition home health service (06) | DRG 493 ==
LOC: 2 SOUTH 07:14
PROVIDERS: Student in an Organized Health Care Education/Training Program; ADMITTING PHYSICIAN Hospitalist; ATTENDING PHYSICIAN Internal Medicine; CONSULT PHYSICIAN Orthopaedic Surgery; EMERGENCY PHYSICIAN Student in an Organized Health Care Education/Training Program
PROC: 0QSH36Z Reposition Left Tibia with Intramedullary Internal Fixation Device, Percutaneous Approach (ICD-10-PCS; 2024-07-22)
DX: S82.232A Displaced oblique fracture of shaft of left tibia, initial encounter for closed fracture (principal); D62 Acute posthemorrhagic anemia; S82.432A Displaced oblique fracture of shaft of left fibula, initial encounter for closed fracture; W01.0XXA Fall on same level from slipping, tripping and stumbling without subsequent striking against object, initial encounter; Y92.000 Kitchen of unspecified non-institutional (private) residence as the place of occurrence of the external cause; F10.129 Alcohol abuse with intoxication, unspecified; Y90.8 Blood alcohol level of 240 mg/100 ml or more
CPT/HCPCS: 73564; 73590; 73610; 76000; 80048; 80053; 82077; 83735; 85025; 85027; 97116; 97163; 97167; 97530; 97535; 97542; 99285; C1713; C1769